=== PATIENT | male | born 1955 | race Caucasian/White ===

== ENCOUNTER 2021-05-11 18:57 | Outpatient (REF) | payer MEDICARE, SELFPAY ==
[2021-05-11 20:40] LABS: Abs Immature Grans 0.01 10^3/uL (0.0-0.06); Absolute Basophil Count 0.06 10^3/uL (0.0-0.2); Absolute Eosinophil Count 0.17 10^3/uL (0.0-0.7); Absolute Lymphocyte Count 0.53 10^3/uL (1.2-3.4); Absolute Monocyte Count 0.67 10^3/uL (0.1-0.8); Absolute Neutrophil Count 3.45 10^3/uL (1.2-6.7); Basophils % 1.2; Eosinophils % 3.5; HCT 41.1 % (40.0-50.0); HGB 13.1 g/dL (13.5-17.5); Immature Grans % 0.2; Lymphocytes % 10.8; MCH 29.6 pg (27.0-33.0); MCHC 31.9 % (32.0-36.0); MCV 92.8 fL (80-95); MPV 10.7 fL (8.0-11.0); Monocytes % 13.7; Neutrophils % 70.6; Nucleated RBC 0 %; Platelet Count 228 10^3/uL (130-400); RBC 4.43 10^6/uL (4.36-5.78); RDW 13.5 % (11.8-14.1); WBC 4.89 10^3/uL (4.4-10.8)
[2021-05-11 21:13] LABS: ALT 11 U/L (16-63); AST 13 U/L (15-37); Albumin 3.1 g/dL (3.4-5.0); Alkaline Phosphatase 77 U/L (46-116); Anion Gap 11.4 mmol/L (3-11); BUN 22 mg/dL (7-18); Bilirubin, Total 0.4 mg/dL (0.2-1.0); CO2 24.6 mmol/L (21.0-32.0); CREATININE 1.3 mg/dL (0.70-1.30); Calcium 8.4 mg/dL (8.5-10.1); Calculated LDL 147 mg/dL (<100); Chloride 104 mmol/L (98-107); Cholesterol 194 mg/dL (<200); Estimated GFR 55.23 (mL/min/1.73m2); Glucose 94 mg/dL (74-106); HDL Cholesterol 26 mg/dL (40-60); Potassium 4.7 mmol/L (3.5-5.1); Sodium 140 mmol/L (136-145); Total Protein 6.2 g/dL (6.4-8.2); Triglyceride 107 mg/dL (<150)
[2021-05-13 09:49] LABS: HIV-1/2 Ag & Ab Screen Negative (Negative)
[2021-05-15 11:46] LABS: Hepatitis C Ab w Rflx HCV PCR Negative (Negative)
== END 2021-05-11 18:58 | disposition home or self-care (01) ==
LOC: NCHCN 18:57
PROVIDERS: Visit Provider Registered Nurse
DX: R59.1 Generalized enlarged lymph nodes (principal); R10.9 Unspecified abdominal pain; Z86.59 Personal history of other mental and behavioral disorders; Z11.4 Encounter for screening for human immunodeficiency virus [HIV]; Z11.59 Encounter for screening for other viral diseases
CPT/HCPCS: 80053; 80061; 86803; 87389; 85025

== ENCOUNTER 2021-05-17 18:46 | Outpatient (REF) | payer MEDICARE, SELFPAY ==
[2021-05-17 21:16] LABS: Prothrombin Time 10.4 sec (9.3-11.0)
== END 2021-05-17 18:47 | disposition home or self-care (01) ==
LOC: NCHCN 18:46
PROVIDERS: Visit Provider Registered Nurse
DX: J90 Pleural effusion, not elsewhere classified (principal)
CPT/HCPCS: 85610